=== PATIENT | female | born 1980 | race African-American/Black ===

== ENCOUNTER 2018-06-01 08:28 | Emergency (ER) | payer SELFPAY ==
[2018-06-01] MEDS ORDERED: Benzonatate 100 MG CAP ONE (08:47)
[2018-06-01] MEDS ORDERED: AMOXicillin 250 MG CAP ONE (08:47)
== END 2018-06-01 08:55 | disposition home or self-care (01) ==
LOC: BURERS 08:28
DX: K08.89 Other specified disorders of teeth and supporting structures (principal); J06.9 Acute upper respiratory infection, unspecified; F41.9 Anxiety disorder, unspecified; F32.9 Major depressive disorder, single episode, unspecified
CPT/HCPCS: 99282

== ENCOUNTER 2018-06-23 13:40 | Emergency (ER) | payer SELFPAY | END 2018-06-23 13:59 | disposition home or self-care (01) | LOC: BURERS 13:40 | DX: S83.92XA Sprain of unspecified site of left knee, initial encounter (principal); G51.0 Bell's palsy; F41.9 Anxiety disorder, unspecified; F32.9 Major depressive disorder, single episode, unspecified; F17.210 Nicotine dependence, cigarettes, uncomplicated; V49.9XXA Car occupant (driver) (passenger) injured in unspecified traffic accident, initial encounter | CPT/HCPCS: 99283 ==

== ENCOUNTER 2018-07-29 08:29 | Emergency (ER) | payer SELFPAY | END 2018-07-29 09:16 | disposition home or self-care (01) | LOC: BURERS 08:29 | DX: M27.3 Alveolitis of jaws (principal); F41.9 Anxiety disorder, unspecified; F32.9 Major depressive disorder, single episode, unspecified; F17.210 Nicotine dependence, cigarettes, uncomplicated; G51.0 Bell's palsy; Z79.891 Long term (current) use of opiate analgesic | CPT/HCPCS: 99281 ==

== ENCOUNTER 2018-09-05 09:34 | Emergency (ER) | payer SELFPAY | END 2018-09-05 09:54 | disposition home or self-care (01) | LOC: BURERS 09:34 | DX: A08.4 Viral intestinal infection, unspecified (principal); E86.0 Dehydration | CPT/HCPCS: 99283 ==

== ENCOUNTER 2018-11-01 09:23 | Emergency (ER) | payer SELFPAY | END 2018-11-01 09:40 | disposition home or self-care (01) | LOC: BURERS 09:23 | DX: R05 Cough (principal); F41.9 Anxiety disorder, unspecified; F17.200 Nicotine dependence, unspecified, uncomplicated; F32.9 Major depressive disorder, single episode, unspecified | CPT/HCPCS: 99283 ==

== ENCOUNTER 2018-12-20 11:23 | Emergency (ER) | payer SELFPAY ==
[2018-12-20] MEDS ORDERED: Ondansetron ODT 4 MG TAB ONE (11:40)
== END 2018-12-20 12:09 | disposition home or self-care (01) ==
LOC: BURERS 11:23
DX: J06.9 Acute upper respiratory infection, unspecified (principal); G51.0 Bell's palsy; F41.9 Anxiety disorder, unspecified; F32.9 Major depressive disorder, single episode, unspecified; F17.200 Nicotine dependence, unspecified, uncomplicated; Z79.899 Other long term (current) drug therapy
CPT/HCPCS: 87804; 99283; Q0162

== ENCOUNTER 2020-07-20 00:12 | Emergency (ER) | payer SELFPAY ==
--- NOTE | 2020-07-20 08:01 | RAD ---
LEFT HUMERUS 2 VIEWS: Date: 07/20/2020 No fracture or area of bony destruction seen. No cause for pain was found. IMPRESSION: No acute findings. POS: HOME
== END 2020-07-20 00:52 | disposition home or self-care (01) ==
LOC: BURERS 00:12
DX: S40.022A Contusion of left upper arm, initial encounter (principal); F41.9 Anxiety disorder, unspecified; F32.9 Major depressive disorder, single episode, unspecified; F17.210 Nicotine dependence, cigarettes, uncomplicated; G51.0 Bell's palsy; W03.XXXA Other fall on same level due to collision with another person, initial encounter

== ENCOUNTER 2020-11-24 08:35 | Emergency (ER) | payer SELFPAY | END 2020-11-24 09:04 | disposition home or self-care (01) | LOC: BURERS 08:35 | DX: B34.9 Viral infection, unspecified (principal); F17.210 Nicotine dependence, cigarettes, uncomplicated | CPT/HCPCS: 99283 ==

== ENCOUNTER 2021-05-03 10:19 | Emergency (ER) | payer SELFPAY | END 2021-05-03 11:06 | disposition home or self-care (01) | LOC: BURERS 10:19 | DX: M25.461 Effusion, right knee (principal); F17.210 Nicotine dependence, cigarettes, uncomplicated | CPT/HCPCS: 99281 ==

== ENCOUNTER 2021-10-03 19:41 | Emergency (ER) | payer SELFPAY | END 2021-10-03 20:05 | disposition home or self-care (01) | LOC: BURERS 19:41 | DX: M54.50 Low back pain, unspecified (principal); F17.210 Nicotine dependence, cigarettes, uncomplicated | CPT/HCPCS: 99281 ==

== ENCOUNTER 2022-01-01 06:18 | Emergency (ER) | payer SELFPAY ==
[2022-01-01] MEDS ORDERED: Boostrix 0.5 ML (Tdap) VIAL ONE (07:17)
[2022-01-01] MEDS ORDERED: Doxycycline 100 MG CAP ONE (07:17)
== END 2022-01-01 07:30 | disposition home or self-care (01) ==
LOC: BURERS 06:18
DX: L02.411 Cutaneous abscess of right axilla (principal); F17.210 Nicotine dependence, cigarettes, uncomplicated
CPT/HCPCS: 10060; 90471; 90715

== ENCOUNTER 2022-02-14 15:28 | Emergency (ER) | payer SELFPAY ==
[2022-02-14] MEDS ORDERED: Dexamethasone 4 MG TAB ONE (15:58)
== END 2022-02-14 16:21 | disposition home or self-care (01) ==
LOC: BURERS 15:28
DX: T63.461A Toxic effect of venom of wasps, accidental (unintentional), initial encounter (principal); F17.210 Nicotine dependence, cigarettes, uncomplicated
CPT/HCPCS: 99282; J8540

== ENCOUNTER 2022-08-12 08:33 | Emergency (ER) | payer SELFPAY ==
[2022-08-12] MEDS ORDERED: Acetaminophen 500 MG TAB ONE (09:06)
== END 2022-08-12 10:25 | disposition home or self-care (01) ==
LOC: BURERS 08:33
DX: J10.1 Influenza due to other identified influenza virus with other respiratory manifestations (principal); F17.210 Nicotine dependence, cigarettes, uncomplicated
CPT/HCPCS: 87804; 96360

== ENCOUNTER 2022-08-20 07:54 | Emergency (ER) | payer SELFPAY ==
[2022-08-20] MEDS ORDERED: methylPREDNISolone Acetate 40 mg/ml Vial ONE (09:21)
== END 2022-08-20 09:42 | disposition home or self-care (01) ==
LOC: BURERS 07:54
DX: J20.9 Acute bronchitis, unspecified (principal); F17.210 Nicotine dependence, cigarettes, uncomplicated
CPT/HCPCS: 96372; 99283; J1030

== ENCOUNTER 2023-07-10 11:40 | Emergency (ER) | payer SELFPAY ==
[2023-07-10] MEDS ORDERED: Morphine 4 MG/ML VIAL ONE (12:10)
[2023-07-10] MEDS ORDERED: Morphine 2 MG/ML VIAL ONE (12:10)
== END 2023-07-10 12:54 | disposition home or self-care (01) ==
LOC: BURERS 11:40
DX: S83.91XA Sprain of unspecified site of right knee, initial encounter (principal); F17.210 Nicotine dependence, cigarettes, uncomplicated; X58.XXXA Exposure to other specified factors, initial encounter
CPT/HCPCS: 96372; J2270; J2272

== ENCOUNTER 2024-01-30 11:04 | Emergency (ER) | payer SELFPAY ==
[2024-01-30] MEDS ORDERED: Acetaminophen 500 MG TAB ONE (12:28)
== END 2024-01-30 13:00 | disposition home or self-care (01) ==
LOC: BURERS 11:04
DX: B34.9 Viral infection, unspecified (principal); F17.200 Nicotine dependence, unspecified, uncomplicated
CPT/HCPCS: 87081; 87430; 87804; 99283

== ENCOUNTER 2024-03-09 03:12 | Emergency (ER) | payer SELFPAY ==
[2024-03-09] MEDS ORDERED: Bacitracin 1 PK ONE (04:44)
[2024-03-09] MEDS ORDERED: Doxycycline 100 MG CAP ONE (04:45)
== END 2024-03-09 05:14 | disposition home or self-care (01) ==
LOC: BURERS 03:12
DX: L02.411 Cutaneous abscess of right axilla (principal); F17.200 Nicotine dependence, unspecified, uncomplicated
CPT/HCPCS: 10060; 87070; 87205

== ENCOUNTER 2024-05-24 19:33 | Emergency (ER) | payer SELFPAY ==
[2024-05-24] MEDS ORDERED: Ondansetron PF 4 MG/2 ML Vial ONE (19:56)
[2024-05-24] MEDS ORDERED: Ketorolac Tromethamine 30 MG (1 mL) VIAL ONE (19:56)
[2024-05-24 20:02] LABS: #Basophils 0.2 thou/uL (0.0-0.2); #Eosinphils 0.1 thou/uL (0.0-0.7); #Lymphocytes 3.4 thou/uL (1.20-3.40); #Monocytes 0.6 thou/uL (0.11-0.59); #Neutrophils 7.4 thou/uL (1.40-6.50); %Basophils 1.4 % (0.0-1.0); %Eosinophils 0.7 % (0.0-10.0); %Lymphocytes 29.3 % (21.0-51.0); %Monocytes 5.4 % (0.0-10.0); %Neutrophils 63.2 % (42.0-75.0); Hematocrit 31.6 % (36.0-47.0); Mean Corpuscular HGB CONC 31.7 g/dL (32.0-36.0); Mean Corpuscular Hemoglobin 19.7 pg (27.0-31.0); Platelet Count 370 10x3/uL (130-400); White Blood Cell (WBC) Count 11.6 10x3/uL (4.8-10.8)
[2024-05-24 20:13] LABS: Anisocytosis SLIGHT = 6-15 cells (100X) (0-5/hpf); MDiff Complete? YES; Microcytosis MODERATE=15-30 cells (100X) (0-5/hpf); Platelet Adequacy Comment Appears Adequate; Reflex for Review?? NO
[2024-05-24 20:16] LABS: ALT (SGPT) 13 U/L (8-55); AST (SGOT) 13 U/L (5-34); Albumin 3.6 g/dL (3.5-5.0); Alkaline Phosphatase 146 U/L (40-110); Anion Gap 14 mmol/L (10-20); BUN (Urea Nitrogen) 10 mg/dL (7.0-18.7); Bilirubin, Total 0.4 mg/dL (0.2-1.2); Calc. Creatinine Clearance 0 mL/min (70-130); Calcium 8.9 mg/dL (7.8-10.44); Carbon Dioxide 22 mmol/L (22-29); Chloride 105 mmol/L (98-107); Estimated GFR 100; Globulin 3.7 g/dL (2.4-3.5); Glucose 142 mg/dL (70-105); Potassium 3.4 mmol/L (3.5-5.1); Protein, Total 7.3 g/dL (6.0-8.3); Sodium 138 mmol/L (136-145)
== END 2024-05-24 21:16 | disposition home or self-care (01) ==
LOC: BURERS 19:33
DX: B34.9 Viral infection, unspecified (principal); E86.0 Dehydration; F17.200 Nicotine dependence, unspecified, uncomplicated
CPT/HCPCS: 80053; 85025; 87804; 96361; 96374; 96375; J1885; J2405

== ENCOUNTER 2024-09-19 14:41 | Emergency (ER) | payer SELFPAY | END 2024-09-19 16:17 | disposition home or self-care (01) | LOC: BURERS 14:41 | DX: R05.9 Cough, unspecified (principal); R09.81 Nasal congestion; F17.200 Nicotine dependence, unspecified, uncomplicated | CPT/HCPCS: 71045 ==